=== PATIENT | female | born 1965 | race Caucasian/White ===

== ENCOUNTER 2016-06-30 11:27 | Emergency (ER) | payer BC ==
[2016-06-30] MEDS ORDERED: diphenhydrAMINE 50 MG/ML SDV IVPUSH ONE ×2 (12:05→13:08)
[2016-06-30] MEDS ORDERED: Ketorolac 30 MG/ML SDV IVPUSH ONE (12:05)
[2016-06-30] MEDS ORDERED: Phenazopyridine 95 MG Tab PO ONE (12:05)
[2016-06-30] MEDS ORDERED: Sodium Chloride 0.9% 1,000 ML IV ONE (12:05)
[2016-06-30] MEDS ORDERED: Sodium Chloride 0.9% 10 ML Syringe FLUSH PRN (12:05)
[2016-06-30] MEDS ORDERED: Ciprofloxacin in D5W 400 MG in Premix Bag 1 BAG IV ONE ×2 (12:07)
--- NOTE | 2016-06-30 12:17 | EDM.PDOC ---
{null, ED HPI GENERAL MEDICAL PROBLEM - General Chief Complaint: Genitourinary Problem Stated Complaint: UTI, POST 1 MONTH Time Seen by Provider: 06/30/16 12:00 Source of Information: Reports: Patient History Limitations: Reports: No Limitations - History of Present Illness INITIAL COMMENTS - FREE TEXT/NARRATIVE: she comes emergency Department today with complaints of urinary frequency and painful urination. This is been going on for the past couple of weeks. About one week ago the patient was seen in her primary care office and she was started on nitrofurantoin. Her symptoms got better for a couple of days but have returned. She now has fever and chills. Nausea and vomiting in the emergency department. She does complain of some right-sided flank pain as well. She denies any abdominal pain. She denies any problems with constipation she had a bowel movement this morning which was normal. Denies any chest pain or shortness of breath. Vaginal Pain Score (Numeric/FACES): 9 - Related Data Allergies Allergy/AdvReac Type Severity Reaction Status Date / Time amoxicillin Allergy Rash Verified 04/01/14 15:30 Sulfa (Sulfonamide Allergy Rash Verified 04/01/14 15:30 Antibiotics) Home Meds: Home Meds Cetirizine [ZyrTEC] 10 mg PO DAILY 04/01/14 [History] Spironolactone [Aldactone] 100 mg PO DAILY 04/01/14 [History] Sertraline [Zoloft] 75 mg PO DAILY 06/30/16 [History] Past Medical History Respiratory History: Reports: Asthma - Past Surgical History HEENT Surgical History: Reports: Tonsillectomy Female Surgical History: Reports: Other (See Below) Other Female Surgeries/Procedures: removal of cyst Social & Family History - Tobacco Use Smoking Status *Q: Never Smoker - Caffeine Use Caffeine Use: Reports: Coffee, Soda - Alcohol Use Days Per Week of Alcohol Use: 7 Number of Drinks Per Day: 1 Total Drinks Per Week: 7 - Recreational Drug Use Recreational Drug Use: No ED ROS GENERAL - Review of Systems Review Of Systems: ROS reveals no pertinent complaints other than HPI. ED EXAM, RENAL/ - Physical Exam Exam: See Below Text/Narrative:: during the exam the patient starts to retch and vomit. Exam Limited By: No Limitations General Appearance: Alert, WD/WN, No Apparent Distress Ears: Normal External Exam, Normal Canal, Normal TMs Nose: Normal Inspection Throat/Mouth: Normal Inspection Head: Atraumatic, Normocephalic Neck: Normal Inspection, Supple, Non-Tender Respiratory/Chest: No Respiratory Distress, Lungs Clear, Normal Breath Sounds, No Accessory Muscle Use Cardiovascular: Normal Peripheral Pulses, Regular Rate, Rhythm GI/Abdominal: Normal Bowel Sounds, Soft, Non-Tender (Female) Exam: Deferred Rectal (Female) Exam: Deferred Back Exam: Full Range of Motion, CVA Tenderness (R). No: CVA Tenderness (L) Extremities: Normal Inspection, Normal Range of Motion Neurological: Alert, Oriented, CN II-XII Intact Skin Exam: Intact, No Rash, Diaphoretic, Other (flushed) Lymphatic: No Adenopathy Course - Vital Signs Last Recorded V/S: Last Vital Signs Temp 37.6 C 06/30/16 13:22 Pulse 74 06/30/16 13:22 Resp 16 06/30/16 13:22 BP 137/86 06/30/16 13:22 Pulse Ox 99 06/30/16 13:22 - Orders/Labs/Meds Orders: Active Orders 24 hr Category Date Time Status Peripheral IV Care [RC] . DIRECTED Care 06/30/16 12:06 Active CULTURE URINE [RM] Stat Lab 06/30/16 11:31 Received Sodium Chloride 0.9% [Saline Flush] Med 06/30/16 12:05 Active 10 ml FLUSH ASDIRECTED PRN Peripheral IV Insertion Adult [OM.PC] Stat Oth 06/30/16 12:05 Ordered Medication Orders Sodium Chloride (Saline Flush) 10 ml FLUSH ASDIRECTED PRN PRN Reason: Keep Vein Open Last Admin: 06/30/16 12:30 Dose: 10 ml Labs: Laboratory Tests 06/30/16 06/30/16 06/30/16 Range/Units 11:31 12:23 12:23 WBC 8.9 (5.0-10.0) 10^3/uL RBC 4.74 (4.2-5.4) 10^6/uL Hgb 15.3 (12.0-16.0) g/dL Hct 45.6 (37.0-47.0) % MCV 96.2 (80-100) fL MCH 32.3 (27.0-34.0) pg MCHC 33.6 (33.0-35.0) g/dL Plt Count 321 (150-450) 10^3/uL Neut % (Auto) 62.7 (42.2-75.2) % Lymph % (Auto) 28.6 (20.5-50.1) % [place] % (Auto) 7.3 (2-8) % Eos % (Auto) 0.8 L (1.0-3.0) % Baso % (Auto) 0.6 (0.0-1.0) % Sodium 139 (135-145) mmol/L Potassium 4.7 (3.6-5.0) mmol/L Chloride 103 (101-111) mmol/L Carbon Dioxide 26.0 (21.0-31.0) mmol/L Anion Gap 14.7 BUN 16 (7-18) mg/dL Creatinine 0.7 (0.6-1.3) mg/dL Est Cr Clr Drug Dosing 83.03 mL/min Estimated GFR (MDRD) > 60 BUN/Creatinine Ratio 22.85 Glucose 87 (74-105) mg/dL Calcium 9.8 (8.4-10.2) mg/dl Total Bilirubin 0.9 (0.2-1.0) mg/dL AST 40 (10-42) IU/L ALT 34 (10-60) IU/L Alkaline Phosphatase 72 (42-121) IU/L Total Protein 9.0 H (6.7-8.2) g/dl Albumin 5.1 (3.2-5.5) g/dl Globulin 3.9 Albumin/Globulin Ratio 1.31 Urine Color Yellow (YELLOW) Urine Appearance Cloudy (CLEAR) Urine pH 7.0 (5.0-9.0) Ur Specific [place] 1.020 (1.005-1.030) Urine Protein 30 H (NEGATIVE) Urine Glucose (UA) Negative (NEGATIVE) Urine Ketones Trace H (NEGATIVE) Urine Occult Blood Small H (NEGATIVE) Urine Nitrite Negative (NEGATIVE) Urine Bilirubin Negative (NEGATIVE) Urine Urobilinogen 0.2 (0.2-1.0) mg/dL Ur Leukocyte Esterase Large H (NEGATIVE) Urine RBC 5-10 H /HPF Urine WBC >100 H (0-5/HPF) /HPF Ur Epithelial Cells Moderate H /HPF Urine Bacteria Many H (0-FEW/HPF) /HPF Meds: Medications Generic Name Dose Route Start Last Admin Trade Name Amalia PRN Reason Stop Dose Admin Sodium Chloride 10 ml 06/30/16 12:05 06/30/16 12:30 Saline Flush FLUSH 10 ml ASDIRECTED PRN Administration Keep Vein Open Discontinued Medications Generic Name Dose Route Start Last Admin Trade Name Amalia PRN Reason Stop Dose Admin Diphenhydramine HCl 25 mg 06/30/16 12:05 06/30/16 12:26 Benadryl IVPUSH 06/30/16 12:06 25 mg ONETIME ONE Administration Diphenhydramine HCl 25 mg 06/30/16 13:08 06/30/16 13:16 Benadryl IVPUSH 06/30/16 13:09 25 mg ONETIME ONE Administration Sodium Chloride 1,000 mls @ 999 mls/hr 06/30/16 12:05 06/30/16 12:27 Normal Saline IV 06/30/16 13:05 999 mls/hr .BOLUS ONE Administration Ciprofloxacin/Dextrose 400 mg/ 200 mls @ 200 mls/hr 06/30/16 12:07 06/30/16 12:27 Premix IV 06/30/16 13:06 200 mls/hr ONETIME ONE Administration Ceftriaxone Sodium 1 gm/ 50 mls @ 100 mls/hr 06/30/16 13:08 06/30/16 13:27 Sodium Chloride IV 06/30/16 13:37 100 mls/hr ONETIME ONE Administration Ketorolac Tromethamine 30 mg 06/30/16 12:05 06/30/16 12:26 Toradol IVPUSH 06/30/16 12:06 30 mg ONETIME ONE Administration Morphine Sulfate 4 mg 06/30/16 12:56 06/30/16 13:20 Morphine IVPUSH 06/30/16 12:57 4 mg ONETIME ONE Administration Phenazopyridine HCl 95 mg 06/30/16 12:05 06/30/16 12:27 Urinary Pain Relief PO 06/30/16 12:06 95 mg ONETIME ONE Administration - Re-Assessments/Exams Free Text/Narrative Re-Assessment/Exam: 06/30/16 12:12 IV normal saline 1 L wide-open for IV hydration. 25 mg Benadryl IV push for nausea. Zofran 4 mg IV push for nausea. Ketorolac 30 mg IV push for pain. Pyridium 100 mg by mouth. Cipro 400 mg IV piggyback. Urine culture. I explained to the patient her presentation as well as her positive urinalysis but she has a pyelonephritis. 06/30/16 14:02 Morphine 4mg IVP after the initiation of Cipro the patient began to itch and had some blotchy rashes of the left forearm from her IV spot. She denied any shortness of breath chest pain wheezing or difficulty breathing no swelling in her throat. The Cipro was discontinued. Rocephin 1 g IV piggyback. Benadryl 25 mg IV push with resolution of the blotchy rash on her left forearm. After the IV fluid the above therapy the patient states that her nausea resolved and her pain is much improved. Talked about the natural course of a pyelonephritis what to watch for. Anything new or worse or unable to tolerate oral hydration and medications or worse she is to return to the ED. She was understanding of this. Discharge instructions as below were explained to the patient she was comfortable with this plan and her questions are answered. Departure - Departure Time of Disposition: 14:02 Disposition: Home, Self-Care 01 Clinical Impression: Pyelonephritis - Discharge Information Instructions: Pyelonephritis, Adult, [id number] Forms: ED Department Discharge Additional Instructions: Tylenol and/or ibuprofen as needed for pain or discomfort or fever. Increase fluid intake over the next couple of days. Pyridium one tablet 3 times a day for the next 3 days to help with pain and urinary frequency. Zofran 4 mg ODT one tab every 6 hours as needed for nausea. Cephalexin 500mg by mouth 4 times aday for 10 days. Take till gone no matter what. Hydrocodone 5/325 one tablet every 6 hours with food as needed for pain. Caution sedation and constipation. Return to emergency Department if new or worsening symptoms. Recheck with your primary care provider following the antibiotic course to ensure eradication of the urinary tract infection as it appears it has been somewhat resistant for recurrence. Recheck with primary care sooner if not improving or worse in any manner. - My Orders Last 24 Hours: My Active Orders 06/30/16 11:31 CULTURE URINE [RM] Stat 06/30/16 12:05 Sodium Chloride 0.9% [Saline Flush] 10 ml FLUSH ASDIRECTED PRN Peripheral IV Insertion Adult [OM.PC] Stat 06/30/16 12:06 Peripheral IV Care [RC] . DIRECTED - Assessment/Plan Last 24 Hours: My Active Orders 06/30/16 11:31 CULTURE URINE [RM] Stat 06/30/16 12:05 Sodium Chloride 0.9% [Saline Flush] 10 ml FLUSH ASDIRECTED PRN Peripheral IV Insertion Adult [OM.PC] Stat 06/30/16 12:06 Peripheral IV Care [RC] . DIRECTED Assessment:: Pyelonephritis. Plan: Tylenol and/or ibuprofen as needed for pain or discomfort or fever. Increase fluid intake over the next couple of days. Pyridium one tablet 3 times a day for the next 3 days to help with pain and urinary frequency. Zofran 4 mg ODT one tab every 6 hours as needed for nausea. Cephalexin 500mg by mouth 4 times aday for 10 days. Take till gone no matter what. Hydrocodone 5/325 one tablet every 6 hours with food as needed for pain. Caution sedation and constipation. Return to emergency Department if new or worsening symptoms. Recheck with your primary care provider following the antibiotic course to ensure eradication of the urinary tract infection as it appears it has been somewhat resistant for recurrence. Recheck with primary care sooner if not improving or worse in any manner. }
[2016-06-30 12:51] LABS: CHLORIDE,CL 103 mmol/L (101-111); SODIUM,NA 139 mmol/L (135-145)
[2016-06-30] MEDS ORDERED: Morphine 4 MG/ML Syringe IVPUSH ONE (12:56)
[2016-06-30] MEDS ORDERED: cefTRIAXone 1 GM in Sodium Chloride 0.9% 50 ML IV ONE (13:08)
[2016-06-30 13:22] VITALS: BP 137/86
== END 2016-06-30 14:34 | disposition home or self-care (01) ==
LOC: DL.ED 11:27
DX: N12 Tubulo-interstitial nephritis, not specified as acute or chronic (principal); J45.909 Unspecified asthma, uncomplicated; Z88.1 Allergy status to other antibiotic agents; Z88.2 Allergy status to sulfonamides; Z79.899 Other long term (current) drug therapy; Z98.890 Other specified postprocedural states
CPT/HCPCS: 36415; 80053; 81001; 85025; 87086; 96361; 96365; 96367; 96375; 96376; 99283; A9270; J0696; J0744; J1200; J1885; J2270; J7030; J7050

== ENCOUNTER 2024-03-08 13:21 | Emergency (ER) | payer BC ==
[2024-03-08] MEDS: Codeine/guaiFENesin 10-100 MG/5 ML Syrup 5 ML Cup PO ONE (13:58)
[2024-03-08] MEDS: Ketorolac 30 MG/ML SDV IM ONE (13:59)
[2024-03-08 14:08] VITALS: BP 139/66; PULSE 82
[2024-03-08] MEDS ORDERED: diphenhydrAMINE 50 MG/ML SDV IVPUSH ONE (14:18)
[2024-03-08] MEDS: diphenhydrAMINE 50 MG/ML SDV IM ONE (14:22)
[2024-03-08] MEDS: Codeine/guaiFENesin 10-100 MG/5 ML Syrup 5 ML Cup ONE (14:42)
== END 2024-03-08 14:50 | disposition home or self-care (01) ==
LOC: DL.ED 13:21
DX: B34.9 Viral infection, unspecified (principal); J45.909 Unspecified asthma, uncomplicated; Z90.89 Acquired absence of other organs; Z88.0 Allergy status to penicillin; Z88.2 Allergy status to sulfonamides; Z79.899 Other long term (current) drug therapy
CPT/HCPCS: 71046; 87428; 96372; 99285; A9270; J1200; J1885

== ENCOUNTER 2024-06-22 13:29 | Emergency (ER) | payer BC ==
[2024-06-22 13:46] VITALS: BP 169/92; PULSE 76
[2024-06-22 14:01] LABS: BASOPHILS PERCENT AUTO 0.4 % (0.0-1.0); EOSINOPHILS PERCENT AUTO 0.7 % (1.0-3.0); HEMOGLOBIN 14.4 g/dL (12.0-16.0); LYMPHOCYTES PERCENT AUTO 34.4 % (20.5-50.1); MEAN CORPUSCULAR HGB CONC 33.5 g/dL (33.0-35.0); MEAN CORPUSCULAR VOLUME 101.4 fL (80-100); MONOCYTES PERCENT AUTO 10.1 % (2-8); NEUTROPHILS PERCENT AUTO 54.4 % (42.2-75.2); PLATELET COUNT,PLT 306 10^3/uL (150-450); RED BLOOD CELL COUNT 4.24 10^6/uL (4.2-5.4); WHITE BLOOD CELL COUNT,WBC 6.9 10^3/uL (5.0-10.0)
[2024-06-22 14:23] LABS: A/G RATIO 1.2; ALBUMIN 4.1 g/dL (3.4-5.0); ANION GAP 17.9 mEq/L (7-13); BUN/CREATININE RATIO 12.1 (No establ ref range); CALCIUM 9.3 mg/dL (8.5-10.1); CREATININE 1.07 mg/dL (0.55-1.02); EST CRCL DRUG DOSING (CG) 49.49 mL/min; MAGNESIUM 1.6 mg/dL (1.8-2.4); POTASSIUM,K 3.9 mmol/L (3.5-5.1); PROTEIN TOTAL,TP 7.6 g/dL (6.4-8.2)
== END 2024-06-22 15:09 | disposition home or self-care (01) ==
LOC: DL.ED 13:29
DX: J45.909 Unspecified asthma, uncomplicated (principal); Z88.0 Allergy status to penicillin; Z88.2 Allergy status to sulfonamides; Z88.8 Allergy status to other drugs, medicaments and biological substances; Z79.51 Long term (current) use of inhaled steroids; Z79.899 Other long term (current) drug therapy; Z79.84 Long term (current) use of oral hypoglycemic drugs
CPT/HCPCS: 36415; 71045; 80053; 83735; 84484; 85025; 93005; 99283; 99285